=== PATIENT | male | born 1965 | race Caucasian/White ===

== ENCOUNTER 2016-10-01 16:45 | Emergency (ER) | payer SELFPAY ==
[~2016-10-01] VITALS: Ht 175.3 cm; Wt 80.7 kg
[2016-10-01 16:57] VITALS: BP_SYST 149
--- NOTE | 2016-10-01 19:30 | NUR ---
Placed in room 6 . Placed on night monitor, blood pressure machine and pulse oximeter. To gown for exam. Side rails up. Report given received from Ely EDEN.
--- NOTE | 2016-10-01 19:39 | NUR ---
Pt. to ER AA[facility] presented with redness and mild swellin gto the left eye for 2 days, states that swelling worsen this morning, c/o pain to affected eye 5/10, states that he irrigated his eye with water denies taking any meds for pain or inflammation, denies any other problems, clear speech, follows commands
--- NOTE | 2016-10-01 19:52 | NUR ---
Dr. Ledezma at bedside examining the pt.
--- NOTE | 2016-10-01 20:18 | NUR ---
PT MOVED TO BED 2
--- NOTE | 2016-10-01 20:30 | NUR ---
Eye Kit set up at bedside, left eye irrigated , MD at bedside for furthur examination and evaluation
[2016-10-01] MEDS ORDERED: GENTAMICIN SULFATE 0.3%, 3.5 GM EYE OINT. OP ONE (20:45)
--- NOTE | 2016-10-01 20:50 | NUR ---
Medication ophthalmic ointment not in stock, notified, no change in orders.
[2016-10-01 21:05] VITALS: BP_SYST 129
--- NOTE | 2016-10-01 21:05 | NUR ---
Patient given written and verbal discharge instructions and verbalizes understanding. ER MD Dr. Ledezma discussed with patient the results and treatment provided. Patient in stable condition. ID arm band removed. Rx of garamycin ointment and Motrin given. Patient educated on pain management and to follow up with PMD. Pain Scale 0/10 Opportunity for questions provided and answered.
== END 2016-10-01 21:05 | disposition home or self-care (01) ==
LOC: SED 16:45
DX: T15.02XA Foreign body in cornea, left eye, initial encounter (principal); W22.8XXA Striking against or struck by other objects, initial encounter; Y93.89 Activity, other specified; Y92.89 Other specified places as the place of occurrence of the external cause; Y99.8 Other external cause status
CPT/HCPCS: 99284